=== PATIENT | male | born 1960 | race Caucasian/White ===

== ENCOUNTER → 2024-03-15 15:37 | Outpatient (CLI) | payer OTHER, SELFPAY ==
--- NOTE | 2024-03-15 15:42 | DI.RAD.S_ITS ---
PROCEDURE: XR CHEST 2V INDICATIONS: HYPERTENSION TECHNIQUE: 2 views of the chest were acquired. COMPARISON: None. FINDINGS: Surgical changes and devices: None. Lungs and pleura: Lungs are clear. No pleural effusions or pneumothorax. Mediastinum: Mediastinal contours are normal. Heart size is normal. Bones and chest wall: No suspicious bony abnormalities. Soft tissues appear unremarkable. IMPRESSION: No acute pulmonary process. Dictated by: Ilana Koehler M.D. on 03/15/2024 at 21:28 Approved by: Ilana Koehler M.D. on 03/15/2024 at 21:28
[2024-03-15 18:05] LABS: NT-proBNP (BNP-Adult 18+) 424 pg/mL (<125)
== END ==
PROVIDERS: Referring Provider Nurse Practitioner; Visit Provider Nurse Practitioner
DX: I50.42 Chronic combined systolic (congestive) and diastolic (congestive) heart failure (principal)
CPT/HCPCS: 36415; 71046; 83880